=== PATIENT | female | born 1985 | race Caucasian/White ===

== ENCOUNTER 2017-07-27 12:18 | Emergency (ER) | payer OTHER ==
[~2017-07-27] VITALS: Ht 162.6 cm; Wt 63.5 kg
[~2017-07-27 12:18] MED LIST: MOTRIN100 MG PO; PRENATAL 19 TA1 EAC1 PO
== END 2017-07-27 20:38 | disposition home or self-care (01) ==
LOC: ER 12:18
DX: R00.2 Palpitations (principal)

== ENCOUNTER 2017-12-19 09:17 | Emergency (ER) | payer OTHER ==
[~2017-12-19] VITALS: Ht 162.6 cm; Wt 61.2 kg
== END 2017-12-19 12:27 | disposition home or self-care (01) ==
LOC: ER 09:17
DX: R00.2 Palpitations (principal); F06.4 Anxiety disorder due to known physiological condition

== ENCOUNTER 2018-09-29 16:15 | Emergency (ER) | payer OTHER ==
[~2018-09-29] VITALS: Ht 162.6 cm; Wt 62.6 kg
== END 2018-09-29 20:35 | disposition home or self-care (01) ==
LOC: ER 16:15
DX: J11.1 Influenza due to unidentified influenza virus with other respiratory manifestations (principal)